=== PATIENT | female | born 1970 | race Caucasian/White ===

== ENCOUNTER 2018-12-17 23:27 | Inpatient (IN) | payer BC ==
[~2018-12-17] VITALS: Ht 154.9 cm; Wt 52.3 kg
[2018-12-17] MEDS ORDERED: METHYLPREDNISOLONE 125 MG INJ IV STA (23:37)
[2018-12-17] MEDS ORDERED: IPRATROPIUM (NEB) 0.5 MG/2.5 ML AMP INH STA (23:37)
[2018-12-17] MEDS ORDERED: ALBUTEROL 0.5% (NEB) 2.5 MG/0.5 ML AMP INH STA (23:37)
[2018-12-18] MEDS ORDERED: ALBUTEROL 0.083% (NEB) 2.5 MG/3 ML AMP HHN STA (02:01)
[2018-12-18] MEDS ORDERED: LEVALBUTEROL (NEB) 0.63 MG/3 ML AMP HHN ONE (02:30)
[2018-12-18] MEDS ORDERED: ACETAMINOPHEN 325 MG TAB PO PRN (02:30)
[2018-12-18] MEDS ORDERED: NACL 0.9% 3 ML SYG IV SCH (02:30)
[2018-12-18] MEDS ORDERED: LEVO50TA7 PO (04:31)
[2018-12-18] MEDS ORDERED: ALBU8.5H8 INH ×2 (04:31→15:27)
--- NOTE | 2018-12-18 05:27 | ERD ---
ER Documentation Chief Complaint Chief Complaint ASTHMA EXCERBATION; WHEEZING, LABORED BREATHING, SATs 80s HPI This is a 48-year-old female complains of shortness of breath and wheezing. Patient has history of asthma and was using a nebulizer at home with no relief. No nausea vomiting fevers or chills. No other current complaints. Upon arrival patient was very short of breath in triage. She was placed in a bed from the evaluation and started on BiPAP immediately placed on continuous engine monitor. ROS All systems reviewed and are negative except as per history of present illness. Medications Home Meds Reported Medications Albuterol Sulfate* (Proair HFA*) 8.5 Gm Hfa.aer.ad, 2 PUFF INH Q4, #1 INHALER 12/18/18 Levothyroxine Sodium* (Levothyroxine Sodium*) 50 Mcg Tablet, 50 MCG PO QAM for 90 Days, #90 12/18/18 Allergies Allergies: Uncoded Allergies: TYLENOL 3 (Allergy, Unknown, 12/18/18) PMhx/Soc History of Surgery: Yes (Hysterectomy) Anesthesia Reaction: No Hx Neurological Disorder: No Hx Respiratory Disorders: Yes (Asthma) Hx Cardiac Disorders: No Hx Psychiatric Problems: No Hx Miscellaneous Medical Probl: Yes (Hypothyroidism) Hx Alcohol Use: No Hx Substance Use: No Hx Tobacco Use: No Smoking Status: Never smoker Physical Exam Vitals Vital Signs Date Temp Pulse Resp B/P (MAP) Pulse Ox O2 O2 Flow FiO2 Time Delivery Rate 12/18/18 109 27 122/65 95 Nasal 2.0 04:46 (84) Cannula 12/18/18 140 21 129/83 94 Nasal 4.0 02:51 (98) Cannula 12/18/18 119 20 140/95 94 Nasal 4.0 01:53 (110) Cannula 12/18/18 94 4.0 01:49 12/18/18 115 95 30 00:00 12/17/18 Nasal 5 23:49 Cannula 12/17/18 Nasal 5.0 23:49 Cannula 12/17/18 120 19 151/93 96 Nasal 5.0 23:49 (112) Cannula 12/17/18 98.5 122 19 177/147 82 23:28 (157) Physical Exam Const: No acute distress Head: Atraumatic Eyes: Normal Conjunctiva ENT: Normal External Ears, Nose and Mouth. Neck: Full range of motion. No meningismus. Resp: Scattered wheezes bilaterally Cardio: Regular rate and rhythm, no murmurs Abd: Soft, non tender, non distended. Normal bowel sounds Skin: No petechiae or rashes Back: No midline or flank tenderness Ext: No cyanosis, or edema Neur: Awake and alert Psych: Normal Mood and Affect Result Diagram: 12/17/18 2346 12/17/18 2346 Results 24 hrs Laboratory Tests Test 12/17/18 23:37 12/17/18 23:42 12/17/18 23:46 12/18/18 02:30 Blood Gas Blood arterial Specimen Source Arterial Blood 12/18/2018 1:30:1 Date Drawn 0 AM Arterial Blood 7.425 pH (Temp corrected) Arterial Blood 40.1 mmhg pCO2 (Temp correct) Arterial Blood 59.1 mmHG pO2 (Temp corrected) Arterial Blood 25.7 mmol/L HCO3 Arterial Blood 1.3 mmol/L Base Excess Arterial Blood 90.5 mmHG Oxygen Saturatio n [place] Test ACCEPTAB Arterial Blood Left Radial Gas Puncture Site Arterial 0.3 % Blood Carboxyhem oglobin Arterial Blood 0.4 % Methemoglobin Blood Gas A-a O2 129.4 mmHg Differential Oxyhemoglobin 89.9 % Percent Blood Gas 37.0 C Temperature Blood Gas NASAL CANNULA Modality FiO2 33.0 % Blood Gas UP Notified Whom Blood Gas 12/18/2018 1:43:5 Notified Time 1 AM POC Venous 1.3 mmol/L Lactate White Blood 13.4 10^3/ul Count Red Blood Count 5.09 10^6/ul Hemoglobin 14.5 g/dl Hematocrit 44.1 % Mean Corpuscular 86.6 fl Volume Mean Corpuscular 28.5 pg Hemoglobin Mean Corpuscular 32.9 g/dl Hemoglobin Jessica nt Red Cell 11.9 % Distribution Width Platelet Count 318 10^3/UL Mean Platelet 9.4 fl Volume Immature 0.300 % Granulocytes % Neutrophils % 84.9 % Lymphocytes % 8.0 % Monocytes % 4.8 % Eosinophils % 1.6 % Basophils % 0.4 % Nucleated Red 0.0 /100WBC Blood Cells % Immature 0.040 10^3/ul Granulocytes # Neutrophils # 11.4 10^3/ul Lymphocytes # 1.1 10^3/ul Monocytes # 0.6 10^3/ul Eosinophils # 0.2 10^3/ul Basophils # 0.1 10^3/ul Nucleated Red 0.0 10^3/ul Blood Cells # Prothrombin Time 12.4 Sec Prothrombin Time 1.0 Ratio INR 0.91 International Normalized Ratio Activated 30.2 Sec Partial Thrombop last Time Sodium Level 142 mmol/L Potassium Level 3.6 mmol/L Chloride Level 103 mmol/L Carbon Dioxide 26 mmol/L Level Anion Gap 13 Blood Urea 10 mg/dl Nitrogen Creatinine 0.60 mg/dl Est Glomerular > 60 mL/min Filtrat Rate mL/min Glucose Level 174 mg/dl Calcium Level 9.9 mg/dl Total Bilirubin 0.8 mg/dl Direct Bilirubin 0.00 mg/dl Indirect 0.8 mg/dl Bilirubin Aspartate Amino 39 IU/L Transf (AST/SGOT ) Alanine 38 IU/L Aminotransferase (ALT/SGPT) Alkaline 91 IU/L Phosphatase Troponin I < 0.012 ng/ml B-Type 67 PG/ML Natriuretic Peptide Total Protein 8.5 g/dl Albumin 4.9 g/dl Globulin 3.60 g/dl Albumin/Globulin 1.36 Ratio Lactic Acid 2.1 mmol/L Level Current Medications Medications Dose Sig/Leonard Start Time Status Last (Trade) Ordered Route PRN Stop Time Admin Dose Reason Admin Albuterol 15 mg ONCE STAT 12/17/18 DC 12/17/18 (Proventil INH 23:37 23:58 0.5% (Neb)) 12/17/18 23:40 Ipratropium 1 mg ONCE STAT 12/17/18 DC 12/17/18 [place] INH 23:37 23:58 (Atrovent 12/17/18 23:40 0.02% (Neb)) 125 mg ONCE STAT 12/17/18 DC 12/17/18 Methylprednis IV 23:37 23:44 olone Sodium 12/17/18 23:40 Succinate (Solu-Medrol) Albuterol 10 mg ONCE RESP 12/18/18 DC 12/18/18 (Proventil THERAPY 02:01 02:06 0.083% (Neb)) STAT HHN 12/18/18 02:02 IV Flush 3 ml PER 12/18/18 (NS 3 ml) PROTOCOL IV 02:30 Ondansetron 4 mg Q6H PRN 12/18/18 HCl (Zofran IV 02:30 Inj) NAUSEA/VOMITI NG 650 mg Q6H PRN 4/23/19 Acetaminophen PO .PAIN 1-3 02:30 (Tylenol OR TEMP Tab) Ipratropium 0.5 mg Q4H RESP 12/18/18 [place] THERAPY NEB 05:00 (Atrovent 0.02% (Neb)) 0.63 mg Q4H ONCE 12/18/18 DC Levalbuterol HHN 02:30 (Xopenex 12/18/18 02:38 Neb) 80 mg DAILY IV 12/18/18 Methylprednis 09:00 olone Sodium Succinate (Solu-Medrol) Procedures/MDM EKG: Rate/Rhythm: [Normal Sinus Rhythm] QRS, ST, T-waves: [No changes consistent w/ acute ischemia] Impression: [No evidence of ischemia or arrhythmia] Chest X-ray 1V Interpreted by me: Soft Tissue: No acute abnormalities Bones: No acute abnormalities Mediastinum/Cardiac Silhouette/Lungs: [No acute abnormalities] Medical decision making: Patient's respiratory symptoms have not responded to normal outpatient therapy and will require inpatient workup, monitoring, and treatment. Accepting Care Team: Current data and ongoing care discussed. Time: 5 AM Primary Provider: Hospitalist Consulting: Deferred to inpatient team Outstanding Data: none Critical Care: Time: 45 minutes, independent of any separately billable procedural time Treatments/Evaluations: Close monitoring and treatment of unstable vital signs, cardiorespiratory, and neurologic status, while maintaining tight balance of fluid, respiratory, and cardiac interventions. Departure Diagnosis: Primary Impression: Shortness of breath Condition: Serious YVETTE QUACH Dec 18, 2018 05:27
[2018-12-18] MEDS: IPRATROPIUM (NEB) 0.5 MG/2.5 ML AMP NEB SCH ×6 (05:46→21:03)
[2018-12-18] MEDS: LEVOTHYROXINE 50 MCG TAB PO SCH (06:51)
[2018-12-18] MEDS: ONDANSETRON 4 MG INJ IV PRN ×2 (07:59→10:45)
[2018-12-18] MEDS ORDERED: SOD CHLORIDE 0.9% 1,000 ML IV SCH (08:00)
[2018-12-18] MEDS: METHYLPREDNISOLONE 125 MG INJ IV SCH (08:07)
[2018-12-18] MEDS ORDERED: SOD CHLORIDE 0.9% 1,000 ML IV ONE (08:30)
--- NOTE | 2018-12-18 08:35 | HP ---
Date/Time of Note Date/Time of Note DATE: 12/18/18 TIME: 08:30 Assessment/Plan VTE Prophylaxis Pharmacological prophylaxis: heparin Lines/Catheters IV Catheter Type (from Nrsg): Peripheral IV Assessment/Plan Assessment/Plan 1. Asthma exacerbation -Supplemental oxygen, bronchodilators and steroid 2. Sepsis: As evidenced by leukocytosis, tachycardia and lactic acidosis -IV antibiotic, IV fluids -Trend lactate -Throat swab -Respiratory culture if possible, but cough has been dry 3. Hypothyroidism: Continue Synthroid Result Diagram: 12/18/18 0613 12/18/18 0613 Results 24hrs Laboratory Tests Test 12/17/18 23:37 12/17/18 23:42 12/17/18 23:46 12/18/18 02:30 Blood Gas Blood arterial Specimen Source Arterial Blood 12/18/2018 1:30:1 Date Drawn 0 AM Arterial Blood pH 7.425 (Temp corrected) Arterial Blood 40.1 pCO2 (Temp correct) Arterial Blood 59.1 L pO2 (Temp corrected) Arterial Blood 25.7 HCO3 Arterial Blood 1.3 Base Excess Arterial Blood 90.5 L Oxygen Saturation [place] Test ACCEPTAB Arterial Blood Left Radial Gas Puncture Site Arterial 0.3 Blood Carboxyhemo globin Arterial Blood 0.4 Methemoglobin Blood Gas A-a O2 129.4 H Differential Oxyhemoglobin 89.9 L Percent Blood Gas 37.0 Temperature Blood Gas NASAL CANNULA Modality FiO2 33.0 Blood Gas UP Notified Whom Blood Gas 12/18/2018 1:43:5 Notified Time 1 AM POC Venous 1.3 Lactate White Blood Count 13.4 H Red Blood Count 5.09 Hemoglobin 14.5 Hematocrit 44.1 Mean Corpuscular 86.6 Volume Mean Corpuscular 28.5 L Hemoglobin Mean Corpuscular 32.9 Hemoglobin Concen t Red Cell 11.9 Distribution Width Platelet Count 318 Mean Platelet 9.4 Volume Immature 0.300 Granulocytes % Neutrophils % 84.9 H Lymphocytes % 8.0 L Monocytes % 4.8 Eosinophils % 1.6 Basophils % 0.4 Nucleated Red 0.0 Blood Cells % Immature 0.040 H Granulocytes # Neutrophils # 11.4 H Lymphocytes # 1.1 Monocytes # 0.6 Eosinophils # 0.2 Basophils # 0.1 Nucleated Red 0.0 Blood Cells # Prothrombin Time 12.4 Prothrombin Time 1.0 Ratio INR International 0.91 Normalized Ratio Activated 30.2 Partial Thrombopl ast Time Sodium Level 142 Potassium Level 3.6 Chloride Level 103 Carbon Dioxide 26 Level Anion Gap 13 Blood Urea 10 Nitrogen Creatinine 0.60 Est Glomerular > 60 Filtrat Rate mL/min Glucose Level 174 Calcium Level 9.9 Total Bilirubin 0.8 Direct Bilirubin 0.00 Indirect 0.8 Bilirubin Aspartate Amino 39 Transf (AST/SGOT) Alanine 38 Aminotransferase (ALT/SGPT) Alkaline 91 Phosphatase Troponin I < 0.012 B-Type 67 Natriuretic Peptide Total Protein 8.5 H Albumin 4.9 Globulin 3.60 H Albumin/Globulin 1.36 Ratio Lactic Acid Level 2.1 *H Test 12/18/18 06:13 White Blood Count 12.5 H Red Blood Count 4.86 Hemoglobin 13.8 Hematocrit 42.1 Mean Corpuscular 86.6 Volume Mean Corpuscular 28.4 L Hemoglobin Mean Corpuscular 32.8 Hemoglobin Concen t Red Cell 11.8 Distribution Width Platelet Count 309 Mean Platelet 9.2 Volume Immature 0.300 Granulocytes % Neutrophils % 95.0 H Lymphocytes % 3.4 L Monocytes % 0.9 Eosinophils % 0.2 Basophils % 0.2 Nucleated Red 0.0 Blood Cells % Immature 0.040 H Granulocytes # Neutrophils # 11.9 H Lymphocytes # 0.4 L Monocytes # 0.1 L Eosinophils # 0.0 Basophils # 0.0 Nucleated Red 0.0 Blood Cells # Sodium Level 142 Potassium Level 4.2 Chloride Level 104 Carbon Dioxide 22 Level Anion Gap 16 H Blood Urea 10 Nitrogen Creatinine 0.56 Est Glomerular > 60 Filtrat Rate mL/min Glucose Level 230 H Lactic Acid Level 6.1 *H Calcium Level 10.4 H Phosphorus Level 3.1 Magnesium Level 1.9 Total Bilirubin 0.6 Direct Bilirubin 0.00 Indirect 0.6 Bilirubin Aspartate Amino 37 Transf (AST/SGOT) Alanine 21 Aminotransferase (ALT/SGPT) Alkaline 74 Phosphatase Total Protein 8.1 Albumin 4.7 Globulin 3.40 H Albumin/Globulin 1.38 Ratio HPI/ROS Admit Date/Time Admit Date/Time Hx of Present Illness This is a 48-year-old female with a history of asthma diagnosed when she was a child, hypothyroidism who presented to ER complaining of shortness of breath and wheezing. She said her symptoms started with some throat irritation a few days ago followed by a significant shortness of breath and wheezing. She also reported dry cough. She said that she has been using her inhaler with increased frequency but without improvement of her symptoms. She does not have inhaled corticosteroids at home. Her friend brought her to the ER who is actually at the bedside. When presented to ER, she was hypoxic with oxygen saturation of 82, and has been tachycardic. She has been given a steroid and breathing treatments with significant improvement in her symptoms. She presented with a lactic acid of around 2 with a repeat jumping to around 6 PMH/Family/Social Past Medical History Medical History: other (See HPI) Medications Current Medications IV Flush (NS 3 ml) 3 ml PER PROTOCOL IV ; Start 12/18/18 at 02:30 Ondansetron HCl (Zofran Inj) 4 mg Q6H PRN IV NAUSEA/VOMITING Last administered on 12/18/18 07:59; Admin Dose 4 MG; Start 12/18/18 at 02:30 Acetaminophen (Tylenol Tab) 650 mg Q6H PRN PO .PAIN 1-3 OR TEMP; Start 12/18/18 at 02:30 Ipratropium [place] (Atrovent 0.02% (Neb)) 0.5 mg Q4H RESP THERAPY NEB Last administered on 12/18/18 08:24; Admin Dose 0.5 MG; Start 12/18/18 at 05:00 Methylprednisolone Sodium Succinate (Solu-Medrol) 80 mg DAILY IV Last administered on 12/18/18 08:07; Admin Dose 80 MG; Start 12/18/18 at 09:00 Levothyroxine Sodium (Synthroid) 50 mcg AC BREAKFAST PO Last administered on 12/18/18 06:51; Admin Dose 50 MCG; Start 12/18/18 at 07:00 Sodium Chloride 1,000 ml @ 100 mls/hr Q10H IV Last administered on 12/18/18 07:59; Admin Dose 100 MLS/HR; Start 12/18/18 at 08:00 Levofloxacin/ Dextrose 100 ml @ 100 mls/hr DAILY IVPB Last administered on 12/18/18 08:07; Admin Dose 100 MLS/HR; Start 12/18/18 at 09:00 Uncoded Allergies: TYLENOL 3 (Allergy, Unknown, 12/18/18) Past Surgical History Past Surgical Hx: other (See HPI) Family History Significant Family History: no pertinent family hx Social History Alcohol Use: none Smoking Status: Never smoker Drug Use: none Exam/Review of Systems Vital Signs Vitals Vital Signs Date Temp Pulse Resp B/P (MAP) Pulse Ox O2 O2 Flow FiO2 Time Delivery Rate 12/18/18 129 24 99 Nasal 15.0 08:27 Cannula Non Rebreather Mask 12/18/18 98.6 114/71 06:29 (85) 12/18/18 30 00:00 Exam Constitutional: other (No acute distress) Head: normocephalic, atraumatic Eyes: EOMI, PERRL Respiratory: wheezing Cardiovascular: other (Tachycardic regular rhythm) Gastrointestinal: soft Extremities: normal pulses YVETTE GROSS MD Dec 18, 2018 08:35
[2018-12-18] MEDS ORDERED: LEVOFLOXACIN 500MG/D5W (PMX) 100 ML IVPB SCH (09:00)
[2018-12-18] MEDS ORDERED: METOCLOPRAMIDE 10 MG INJ IV ONE (12:00)
[2018-12-18] MEDS: LEVALBUTEROL (NEB) 1.25 MG/0.5 ML AMP HHN SCH ×3 (13:05→21:03)
--- NOTE | 2018-12-18 15:27 | QN ---
Documentation Comment The patient has been in the emergency department for the past 16 hours. The patient was just seen by Dr. Mathew from the panel team and he feels at this point she is ready for discharge. He will do the discharge instructions and give her prescriptions upon discharge. ZHANG HARLEY MD Dec 18, 2018 15:27
--- NOTE | 2018-12-18 15:28 | PDOCDIS ---
Discharge Instructions DIAGNOSIS Discharge Diagnosis Asthma exacerbation CONDITION [id number] Patient Condition: [id number] Stable FOLLOW UP/APPOINTMENTS Follow-up Plan Return to the emergency room immediately if you feel any shortness of breath Take your new inhaler everyday as prescribed I have prescribed you for more days of prednisone which should help with your breathing as well Make sure to see your doctor or make an appointment with your lung specialist to discuss treatment for your ashtma ARMOND ESQUIVEL MD Dec 18, 2018 15:28
--- NOTE | 2018-12-18 15:30 | DS ---
Date/Time of Note Date/Time of Note DATE: 12/18/18 TIME: 15:28 Discharge Summary Admission/Discharge Info Admit Date/Time Discharge Date/Time Discharge Diagnosis Asthma exacerbation Patient Condition: Stable Hospital Course The patient was found to have hypoxia from acute ashtma exacerbation. She was given IV steroids, and bronchodilators. Her respiratory status normalized and she requested discharge home. She had a lactic acidosis that resolved, likely a result of work of breathing and beta agonists, as she showed no signs of shock. She was encouraged to follow up with her primary doctor for further management of ashtma Home Meds Reported Medications Albuterol Sulfate* (Proair HFA*) 8.5 Gm Hfa.aer.ad, 2 PUFF INH Q4, #1 INHALER 12/18/18 Levothyroxine Sodium* (Levothyroxine Sodium*) 50 Mcg Tablet, 50 MCG PO QAM for 90 Days, #90 12/18/18 Follow-up Plan Return to the emergency room immediately if you feel any shortness of breath Take your new inhaler everyday as prescribed I have prescribed you for more days of prednisone which should help with your breathing as well Make sure to see your doctor or make an appointment with your lung specialist to discuss treatment for your ashtma Primary Care Provider Care Physician No Primary Pending Labs Laboratory Tests Test 12/17/18 23:37 12/17/18 23:42 12/17/18 23:46 12/18/18 02:30 Blood Gas Blood arterial Specimen Source Arterial Blood 12/18/2018 1:30: Date Drawn 10 AM Arterial Blood 7.425 (7.350-7. pH 450) (Temp corrected ) Arterial Blood 40.1 pCO2 mmhg (35-45) (Temp correct) Arterial Blood 59.1 pO2 mmHG (80-100.0) (Temp corrected ) Arterial Blood 25.7 HCO3 mmol/L (22.0-26 .0) Arterial Blood 1.3 Base Excess mmol/L (-3.0-3) Arterial Blood 90.5 Oxygen Saturati mmHG (95.0-98.0 on ) [place] Test ACCEPTAB Arterial Blood Left Radial Gas Puncture Site Arterial 0.3 % (0.0-3.0) Blood Carboxyhe moglobin Arterial Blood 0.4 % (0.0-1.5) Methemoglobin Blood Gas A-a 129.4 O2 mmHg (7.0-24.0) Differential Oxyhemoglobin 89.9 Percent % (93.0-99.0) Blood Gas 37.0 C Temperature Blood Gas NASAL CANNULA Modality FiO2 33.0 % Blood Gas UP Notified Whom Blood Gas 12/18/2018 1:43: Notified Time 51 AM POC Venous 1.3 Lactate mmol/L (0.5-2. 0) White Blood 13.4 Count 10^3/ul (4.8-1 0.8) Red Blood 5.09 Count 10^6/ul (4.20- 5.40) Hemoglobin 14.5 g/dl (12.0-16. 0) Hematocrit 44.1 % (37.0-47.0) Mean 86.6 Corpuscular fl (82.0-101.0 Volume ) Mean 28.5 Corpuscular pg (29.0-33.0) Hemoglobin Mean 32.9 Corpuscular g/dl (32.0-37. Hemoglobin Conc 0) ent Red Cell 11.9 Distribution % (11.5-14.5) Width Platelet Count 318 10^3/UL (140-4 15) Mean Platelet 9.4 Volume fl (7.4-10.4) Immature 0.300 Granulocytes % % (0.001-0.429 ) Neutrophils % 84.9 % (39.0-77.0) Lymphocytes % 8.0 % (15.0-51.0) Monocytes % 4.8 % (0.0-11.0) Eosinophils % 1.6 % (0.0-7.0) Basophils % 0.4 % (0.0-2.0) Nucleated Red 0.0 Blood Cells % /100WBC (0.0-0 .0) Immature 0.040 Granulocytes # 10^3/ul (0.0-0 .031) Neutrophils # 11.4 10^3/ul (1.6-7 .5) Lymphocytes # 1.1 10^3/ul (0.8-2 .9) Monocytes # 0.6 10^3/ul (0.3-0 .9) Eosinophils # 0.2 10^3/ul (0.0-0 .5) Basophils # 0.1 10^3/ul (0.0-0 .1) Nucleated Red 0.0 Blood Cells # 10^3/ul (0.0-0 .0) Prothrombin 12.4 Time Sec (11.9-14.9 ) Prothrombin 1.0 Time Ratio INR 0.91 International Normalized Rati o Activated 30.2 Partial Thrombo Sec (23.0-35.0 plast Time ) Sodium Level 142 mmol/L (135-14 4) Potassium 3.6 Level mmol/L (3.5-5. 1) Chloride Level 103 mmol/L (97-110 ) Carbon Dioxide 26 Level mmol/L (21-31) Anion Gap 13 (5-13) Blood Urea 10 Nitrogen mg/dl (7-20) Creatinine 0.60 mg/dl (0.44-1. 00) Est Glomerular > 60 Filtrat mL/min (>60) Rate mL/min Glucose Level 174 mg/dl (70-220) Calcium Level 9.9 mg/dl (8.4-10. 2) Total 0.8 Bilirubin mg/dl (0.2-1.3 ) Direct 0.00 Bilirubin mg/dl (0.00-0. 20) Indirect 0.8 Bilirubin mg/dl (0-1.1) Aspartate Amino 39 Transf (AST/SGO IU/L (15-46) T) Alanine 38 Aminotransferas IU/L (13-69) e (ALT/SGPT) Alkaline 91 Phosphatase IU/L (42-121) Troponin I < 0.012 ng/ml (0.000-0 .120) B-Type 67 Natriuretic PG/ML (0-125) Peptide Total Protein 8.5 g/dl (6.1-8.1) Albumin 4.9 g/dl (3.3-4.9) Globulin 3.60 g/dl (1.3-3.2) Albumin/Globuli 1.36 n Ratio Lactic Acid 2.1 Level mmol/L (0.5-2. 0) Test 12/18/18 06:13 12/18/18 08:17 12/18/18 08:30 12/18/18 12:13 White Blood 12.5 Count 10^3/ul (4.8-10 .8) Red Blood 4.86 Count 10^6/ul (4.20-5 .40) Hemoglobin 13.8 g/dl (12.0-16.0 ) Hematocrit 42.1 % (37.0-47.0) Mean 86.6 Corpuscular fl (82.0-101.0) Volume Mean 28.4 Corpuscular pg (29.0-33.0) Hemoglobin Mean 32.8 Corpuscular g/dl (32.0-37.0 Hemoglobin Conc ) ent Red Cell 11.8 Distribution % (11.5-14.5) Width Platelet Count 309 10^3/UL (140-41 5) Mean Platelet 9.2 Volume fl (7.4-10.4) Immature 0.300 Granulocytes % % (0.001-0.429) Neutrophils % 95.0 % (39.0-77.0) Lymphocytes % 3.4 % (15.0-51.0) Monocytes % 0.9 % (0.0-11.0) Eosinophils % 0.2 % (0.0-7.0) Basophils % 0.2 % (0.0-2.0) Nucleated Red 0.0 Blood Cells % /100WBC (0.0-0. 0) Immature 0.040 Granulocytes # 10^3/ul (0.0-0. 031) Neutrophils # 11.9 10^3/ul (1.6-7. 5) Lymphocytes # 0.4 10^3/ul (0.8-2. 9) Monocytes # 0.1 10^3/ul (0.3-0. 9) Eosinophils # 0.0 10^3/ul (0.0-0. 5) Basophils # 0.0 10^3/ul (0.0-0. 1) Nucleated Red 0.0 Blood Cells # 10^3/ul (0.0-0. 0) Sodium Level 142 mmol/L (135-144 ) Potassium 4.2 Level mmol/L (3.5-5.1 ) Chloride Level 104 mmol/L (97-110) Carbon Dioxide 22 Level mmol/L (21-31) Anion Gap 16 (5-13) Blood Urea 10 mg/dl (7-20) Nitrogen Creatinine 0.56 mg/dl (0.44-1.0 0) Est Glomerular > 60 Filtrat mL/min (>60) Rate mL/min Glucose Level 230 mg/dl (70-220) Lactic Acid 6.1 3.9 Level mmol/L (0.5-2.0 mmol/L (0.5-2. ) 0) Calcium Level 10.4 mg/dl (8.4-10.2 ) Phosphorus 3.1 Level mg/dl (2.5-4.9) Magnesium 1.9 Level mg/dl (1.7-2.5) Total 0.6 Bilirubin mg/dl (0.2-1.3) Direct 0.00 Bilirubin mg/dl (0.00-0.2 0) Indirect 0.6 Bilirubin mg/dl (0-1.1) Aspartate Amino 37 IU/L (15-46) Transf (AST/SGO T) Alanine 21 IU/L (13-69) Aminotransferas e (ALT/SGPT) Alkaline 74 Phosphatase IU/L (42-121) Total Protein 8.1 g/dl (6.1-8.1) Albumin 4.7 g/dl (3.3-4.9) Globulin 3.40 g/dl (1.3-3.2) Albumin/Globuli 1.38 n Ratio Blood Gas Blood arterial Specimen Source Arterial Blood 12/18/2018 8:54 Date Drawn :50 AM Arterial Blood 7.403 (7.350-7 pH .450) (Temp corrected ) Arterial Blood 38.5 pCO2 mmhg (35-45) (Temp correct) Arterial Blood 90.0 pO2 mmHG (80-100.0 (Temp corrected ) ) Arterial Blood 23.5 HCO3 mmol/L (22.0-2 6.0) Arterial Blood -1.0 Base Excess mmol/L (-3.0-3 ) Arterial Blood 96.8 Oxygen Saturati mmHG (95.0-98. on 0) [place] Test N/A Arterial Blood Left Radial Gas Puncture Site Arterial 0.3 Blood Carboxyhe % (0.0-3.0) moglobin Arterial Blood 0.3 Methemoglobin % (0.0-1.5) Blood Gas A-a 100.3 O2 mmHg (7.0-24.0 Differential ) Oxyhemoglobin 96.2 Percent % (93.0-99.0) Blood Gas 37.0 C Temperature Blood Gas NASAL CANNULA Modality FiO2 33.0 % Blood Gas Notified Whom Blood Gas 12/18/2018 9:04 Notified Time :53 AM POC Venous 1.1 Lactate mmol/L (0.5-2. 0) Test 12/18/18 13:19 Lactic Acid 1.4 Level mmol/L (0.5-2.0 ) ARMOND ESQUIVEL MD Dec 18, 2018 15:30
[2018-12-18 17:59] VITALS: BP 116/72; PULSE 112
[2018-12-18 18:05] VITALS: Ht 154.9 cm; Wt 52.3 kg
[2018-12-18 19:50] VITALS: BP 122/61; PULSE 110; RESP 18
[2018-12-19 01:22] VITALS: BP 113/64; PULSE 98; RESP 18
[2018-12-19] MEDS: IPRATROPIUM (NEB) 0.5 MG/2.5 ML AMP NEB SCH ×4 (01:41→12:55)
[2018-12-19] MEDS: LEVALBUTEROL (NEB) 1.25 MG/0.5 ML AMP HHN PRN ×4 (01:41→12:56)
[2018-12-19] MEDS: LEVOTHYROXINE 50 MCG TAB PO SCH (06:30)
[2018-12-19 07:54] VITALS: BP 119/58; PULSE 101; RESP 18
[2018-12-19] MEDS: METHYLPREDNISOLONE 125 MG INJ IV SCH (08:09)
[2018-12-19] MEDS ORDERED: FAMO-96 PO (11:52)
[2018-12-19] MEDS ORDERED: MONT10TA21 PO (11:52)
[2018-12-19] MEDS ORDERED: PRED10TA PO (11:52)
[2018-12-19] MEDS ORDERED: FLUT1BLS INHALATION (11:52)
--- NOTE | 2018-12-19 11:56 | DS ---
Date/Time of Note Date/Time of Note DATE: 12/19/18 TIME: 11:53 Discharge Summary Admission/Discharge Info Admit Date/Time Dec 18, 2018 at 01:16 Discharge Date/Time Discharge Diagnosis Asthma exacerbation.stable Type B lactic acidosis, resolved. Patient Condition: Stable Procedures 12/18/2018. Chest x-ray. IMPRESSION: No evidence for active cardiopulmonary disease. Hospital Course 48-year-old female with a history of asthma, otherwise healthy, admitted with asthma exacerbation. Patient was treated with [id number] CLARISA, LABA and IV steroids. She had a lactic acidosis that resolved, likely a result of work of breathing and beta agonists, as she showed no signs of shock. Wheezing resolved. Labs and vital signs stable. At this time, patient is stable for outpatient follow-up with tapering dose of prednisone. I have also prescribed her with asthma maintenance management including ICH, Singulair for outpatient. Patient verbalized instructions. On day of discharge, patient's leukocytosis persist, secondary to IV steroids. As mentioned above, there is no evidence to suggest any infection as such, she does not require antibiotics. Approximately 60-minute was spent in coordinating the discharge on this patient. Patient was seen in collaboration with [facility] Active Scripts Famotidine* (Pepcid*) 20 Mg Tablet, 20 MG PO .HS for 10 Days, #10 TAB Prov:PEPPER OGDEN NP 12/19/18 Fluticasone/Vilanterol (Breo Ellipta 200-25 Mcg INH) 1 Each Blst.w.dev, 1 PUFF INHALATION DAILY, #1 INHALER Prov:PEPPER OGDEN NP 12/19/18 Montelukast Sodium* (Singulair*) 10 Mg Tablet, 10 MG PO QHS, #30 TAB Prov:PEPPER OGDEN V. COMPLIANCE REPRESENTATIVE 12/19/18 Prednisone* (Prednisone*) 10 Mg Tab, 10 MG PO DAILY, #20 TAB take 4 pills (40mg) on day #1 & day #2 (12/20,12/21),then take 3 pills(30mg) on day #3 & day #4 (12/22,12/23),then take 2 pills on day #5 & day #6 (12/24,12/25),take 1 pill on day #7 & day #8 (12/26,12/27),then STOP Prov:PEPPER OGDEN Fadumo COMPLIANCE REPRESENTATIVE 12/19/18 Reported Medications Albuterol Sulfate* (Proair HFA*) 8.5 Gm Hfa.aer.ad, 2 PUFF INH Q4, #1 INHALER 12/18/18 Levothyroxine Sodium* (Levothyroxine Sodium*) 50 Mcg Tablet, 50 MCG PO QAM for 90 Days, #90 12/18/18 Follow-up Plan Return to the emergency room immediately if you feel any shortness of breath Take your new inhaler everyday as prescribed I have prescribed you for more days of prednisone which should help with your breathing as well Make sure to see your doctor or make an appointment with your lung specialist to discuss treatment for your ashtma Primary Care Provider Care Physician No Primary Pending Labs Laboratory Tests Test 12/18/18 12:13 12/18/18 13:19 12/19/18 05:00 POC Venous Lactate 1.1 mmol/L (0.5-2.0) Lactic Acid Level 1.4 mmol/L (0.5-2.0) White Blood Count 19.0 10^3/ul (4.8-10.8) Red Blood Count 4.09 10^6/ul (4.20-5.40 ) Hemoglobin 11.6 g/dl (12.0-16.0) Hematocrit 35.5 % (37.0-47.0) Mean Corpuscular 86.8 Volume fl (82.0-101.0) Mean Corpuscular 28.4 Hemoglobin pg (29.0-33.0) Mean Corpuscular 32.7 Hemoglobin Concent g/dl (32.0-37.0) Red Cell 12.1 % (11.5-14.5) Distribution Width Platelet Count 295 10^3/UL (140-415) Mean Platelet 9.4 fl (7.4-10.4) Volume Immature 0.700 Granulocytes % % (0.001-0.429) Neutrophils % 87.1 % (39.0-77.0) Lymphocytes % 5.0 % (15.0-51.0) Monocytes % 7.1 % (0.0-11.0) Eosinophils % 0.0 % (0.0-7.0) Basophils % 0.1 % (0.0-2.0) Nucleated Red Blood 0.0 Cells % /100WBC (0.0-0.0) Immature 0.140 Granulocytes # 10^3/ul (0.0-0.031 ) Neutrophils # 16.5 10^3/ul (1.6-7.5) Lymphocytes # 1.0 10^3/ul (0.8-2.9) Monocytes # 1.3 10^3/ul (0.3-0.9) Eosinophils # 0.0 10^3/ul (0.0-0.5) Basophils # 0.0 10^3/ul (0.0-0.1) Nucleated Red Blood 0.0 Cells # 10^3/ul (0.0-0.0) Sodium Level 141 mmol/L (135-144) Potassium Level 4.5 mmol/L (3.5-5.1) Chloride Level 107 mmol/L (97-110) Carbon Dioxide 29 mmol/L (21-31) Level Anion Gap 5 (5-13) Blood Urea 17 mg/dl (7-20) Nitrogen Creatinine 0.58 mg/dl (0.44-1.00) Est Glomerular > 60 mL/min (>60) Filtrat Rate mL/min Glucose Level 122 mg/dl (70-220) Calcium Level 9.5 mg/dl (8.4-10.2) Phosphorus Level 4.2 mg/dl (2.5-4.9) Magnesium Level 2.2 mg/dl (1.7-2.5) PEPPER OGDEN NP Dec 19, 2018 11:56
== END 2018-12-19 14:30 | disposition home or self-care (01) | DRG 203 ==
LOC: E/R 23:27 → 2NE 12-18 01:16 → SUATTDRO 12-18 11:55 → EDBEDREQ 12-18 16:01 → EDBEDREQTM 12-18 16:01 → EDBEDREQSVC 12-18 16:07 → EDBEDREQ 12-18 16:07
PROVIDERS: ADMIT Internal Medicine; ATTEND Internal Medicine
DX: J45.901 Unspecified asthma with (acute) exacerbation (principal)
CPT/HCPCS: 36415; 36600; 71045; 80048; 80053; 82803; 83605; 83735; 83880; 84100; 84484; 85025; 85610; 85730; 93005; 94640; 94644; 94645; 94660; 94664; 96374; J1956; J2405; J2765; J2930; J7030